=== PATIENT | female | born 1985 | race Hispanic/Latino ===

== ENCOUNTER 2018-07-06 07:58 | Inpatient (IN) | payer BC, OTHER ==
[~2018-07-06] VITALS: Ht 154.9 cm; Wt 61.4 kg
[~2018-07-06 07:58] MED LIST: PREN-196 PO
[2018-07-06 08:23] LABS: APPEARANCE,URINE Turbid (CLEAR); BILIRUBIN,URINE Negative (NEGATIVE); COLOR,URINE Yellow (YELLOW); GLUCOSE, URINE (UA) Negative (NEGATIVE); KETONES,URINE 15 mg/dL (NEGATIVE); LEUKOCYTE ESTERASE ,URINE Trace (NEGATIVE); NITRATE,URINE Negative (NEGATIVE); OCCULT BLOOD,URINE Large (NEGATIVE); PH,URINE 8.5 (5.0-8.0); PROTEIN,URINE Trace (NEGATIVE)
[2018-07-06] MEDS ORDERED: ONDANSETRON HCL 4 MG/2 ML VIAL ONE (08:27)
[2018-07-06] MEDS ORDERED: SODIUM CHLORIDE 0.9% 1000ML 1,000 ML IV ONE (08:27)
[2018-07-06] MEDS ORDERED: MORPHINE SULFATE 4 MG/1ML SYG ONE (08:28)
[2018-07-06 08:29] LABS: BASOPHILS % (AUTO) 0.7 % (0.0-5.0); EOSINOPHILS % (AUTO) 0.5 % (0.0-8.0); HEMATOCRIT 38.6 % (36-48); LYMPHOCYTES % (AUTO) 14.7 % (21.0-51.0); MEAN CORPUSCULAR HEMOGLOBIN 29.8 pg (27.0-33.0); MEAN CORPUSCULAR HGB CONC 33.3 g/dL (32.0-36.0); MEAN CORPUSCULAR VOLUME 89.6 fL (79-99); NEUTROPHILS % (AUTO) 79.1 % (40.0-77.0); PLATELET COUNT (AUTO) 292 K/uL (130-400); RED BLOOD CELL COUNT(AUTO) 4.31 MIL/uL (4.00-5.50); RED CELL DISTRIBUTION WIDTH 13.4 % (11.0-15.5); WHITE BLOOD COUNT (AUTO) 12.5 K/uL (4.8-10.8)
[2018-07-06 08:38] LABS: RBC,URINE >100 /HPF (0-1)
[2018-07-06 08:39] LABS: AMORPHOUS SEDIMENT,UR Many /LPF (None Seen); SQUAMOUS EPITHELIAL CELL,UR Moderate /HPF (0-2); WBC,URINE 0-1 /HPF (0-1)
[2018-07-06 08:40] LABS: MUCUS,URINE Few LPF (None Seen)
[2018-07-06 08:41] LABS: BACTERIA,URINE Few /HPF (None Seen)
[2018-07-06 08:55] LABS: CREATININE 0.9 mg/dL (0.5-1.5); POTASSIUM 3.4 mmol/L (3.5-5.1)
[2018-07-06 09:01] LABS: ALBUMIN 4.2 g/dL (3.5-5.0); BILIRUBIN,TOTAL 0.5 mg/dL (0.2-1.0); TOTAL PROTEIN, SERUM 8.2 g/dL (6.0-8.3)
[2018-07-06] MEDS ORDERED: KETOROLAC TROMETHAMINE 30MG/ML ONE (10:02)
[2018-07-06] MEDS ORDERED: POTASSIUM CHLORIDE 10% ELIXIR 20 MEQ/15 ML UDCUP PO SCH (11:45)
[2018-07-06] MEDS ORDERED: ACETAMINOPHEN 325 MG TAB PO PRN (11:45)
[2018-07-06] MEDS ORDERED: LEVOFLOXACIN 500 MG/D5W 100 ML 100 ML IV SCH (11:45)
[2018-07-06] MEDS ORDERED: ONDANSETRON HCL 4 MG/2 ML VIAL IV PRN (11:45)
[2018-07-06] MEDS ORDERED: ACETAMINOPHEN-CODEINE 300/30MG TAB PO PRN (11:45)
[2018-07-06] MEDS ORDERED: MORPHINE SULFATE 2 MG/ML 1ML SYG IV PRN (11:45)
[2018-07-06 12:20] VITALS: BP 109/64
[2018-07-06] MEDS: SODIUM CHLORIDE 0.9% 1000ML 1,000 ML IV SCH ×2 (13:29→22:21)
[2018-07-06 16:00] VITALS: BP 93/55
[2018-07-06 19:00] VITALS: BP 102/67
[2018-07-06] MEDS ORDERED: TRAMADOL HCL 50 MG TABLET PO PRN (20:00)
[2018-07-06] MEDS ORDERED: TAMSULOSIN HCL 0.4 MG CAP.ER.24H PO SCH (21:00)
[2018-07-06] MEDS: FAMOTIDINE/PF 20 MG/2 ML VIAL IV SCH (22:21)
[2018-07-07] VITALS: BP 109/66
[2018-07-07 04:00] VITALS: BP 94/53
[2018-07-07 08:20] VITALS: BP 86/51
[2018-07-07] MEDS: FAMOTIDINE/PF 20 MG/2 ML VIAL IV SCH (08:40)
[2018-07-07] MEDS: SODIUM CHLORIDE 0.9% 1000ML 1,000 ML IV SCH (08:41)
[2018-07-07] MEDS ORDERED: TAMSULOSIN HCL 0.4 MG CAP.ER.24H PO SCH (09:00)
[2018-07-07] MEDS ORDERED: ACET-2247 PO (10:07)
[2018-07-07] MEDS ORDERED: TAMS-1 PO (10:07)
[2018-07-07] MEDS ORDERED: LEVO500T2 PO (10:07)
[2018-07-07 11:51] VITALS: BP 105/65
== END 2018-07-07 14:55 | disposition home or self-care (01) | DRG 694 ==
LOC: EDH 07:58 → EDHIP 10:30 → 3DH 11:51
PROVIDERS: ADMIT Hospitalist; ATTEND Hospitalist
DX: N13.2 Hydronephrosis with renal and ureteral calculous obstruction (principal); E87.6 Hypokalemia; Z87.442 Personal history of urinary calculi; Z83.3 Family history of diabetes mellitus; Z80.42 Family history of malignant neoplasm of prostate; Z82.49 Family history of ischemic heart disease and other diseases of the circulatory system
CPT/HCPCS: 36415; 74176; 80053; 81001; 81025; 85025; J1885; J1956; J2270; J2405; J3490; J7030